=== PATIENT | female | born 1990 | race Caucasian/White ===

== ENCOUNTER 2025-03-19 08:48 | Outpatient (CLI) | payer OTHER, SELFPAY ==
--- NOTE | ~2025-03-19 | MMUS_ITS ---
EXAMINATION: MM diagnostic daniela BI w nathalia, US breast LT complete INDICATION: 35-year old female with prior history of left breast abscess now presents with greenish left nipple discharge which as subsided since the improvement on antibiotics in the last 1 week; presents for imaging evaluation for left breast abscess. COMPARISON: Baseline TECHNIQUE: Digital breast tomosynthesis True lateral, CC and MLO views of BILATERAL breast were obtained with computer-aided detection to assist in interpretation of the study. MAMMOGRAM FINDINGS: The breasts are extremely dense, which lowers the sensitivity of mammography. A superficial asymmetry persists in the medial subareolar location in the left breast. There is no other evidence of suspicious mass, calcification, or architectural distortion to suggest malignancy in either breast.. LEFT BREAST ULTRASOUND FINDINGS: Targeted evaluation of the area of concern was completed. At 9:00 superficial subareolar location in the left breast, corresponding to the area of mammographic finding, there is a 2.98 x 1.34 cm complex fluid collection with no internal vascularity/intramural nodule. IMPRESSION: LEFT breast abscess at 9:00, subareolar location. No evidence of malignancy within the right breast. RECOMMENDATION: Clinical management with follow-up to complete resolution. BI-RADS 2, BENIGN Reviewed, dictated and finalized at location B. IMPRESSION: LEFT breast abscess at 9:00, subareolar location. No evidence of malignancy within the right breast. RECOMMENDATION: Clinical management with follow-up to complete resolution. BI-RADS 2, BENIGN
--- OUTSIDE RECORDS SUMMARY | 2025-03-19 09:02 | XMS_ITS | Patient Health Record ---
Author Organization [facility] Address [facility] [id number] Care Team Providers Care Director Imaging Name Role Phone Claudia Turner Unavailable [phone] Reason For Referral No Information Social History Social History Additional Details Category Social Info Options Details Migrated Social History Migrated Social History Comments : Positive, Notes: lives with dad, mom killed in car accident a few years ago Plan Of Treatment No Information
--- OUTSIDE RECORDS SUMMARY | 2025-03-19 09:02 | XMS_ITS | Data Portability ---
Author Organization [facility], Telehealth (patients home) Address [address] [place] [address] Assessment Encounter Date Assessment Date Assessment LastModified by Organization Details LastModified Time 04/20/2024 04/20/2024 Annual gynecological exam performed. Patient will come back in a year unless there are new symptoms. [email or web address] Not available 04/20/2024 09:49:34 07/20/2024 07/20/2024 Bhavya really likes the NuvaRing. Cycles last 4 days and are not as heavy. cramping not as many days. Feeling more balanced mentally. still get really nauseated with her cycle. would like to continue nuvaring Not available 07/20/2024 10:20:24 03/09/2025 03/09/2025 Labs and Imaging Laboratory tests ordered: Thyroid function tests to be completed within the next few days Prolactin level to be completed within the next few days (after breast exam to avoid false elevation) Visit Summary Bhavya Sanders presented with concerns about left breast tenderness, enlargement, and redness that started a day or two ago. She reports similar episodes over the past couple of years with previous instances of greenish-yellow discharge. Her most recent episode occurred a few months ago before summer 2024. She describes her current symptoms as a feeling before it discharges with her breast feeling hard and sore and her nipple throbbing. She reports consuming approximately 18 ounces of coffee daily and recently completed her menstrual cycle a couple of days ago. Physical examination confirmed that her left breast appears larger than the right. Laboratory tests were ordered including thyroid function and prolactin level to be completed in the next few days (not immediately following the breast exam to avoid false elevation of prolactin). She was advised to limit caffeine intake to help with breast tenderness and was recommended to try evening primrose supplements. She was instructed not to stimulate her breasts to avoid causing more discharge. A follow-up wellness exam is already scheduled for April 26, 2025. If test results are concerning, referral to a breast specialist will be considered. Not available 03/09/2025 23:46:51 03/17/2025 03/17/2025 Labs and Imaging Blood work (March 12, 2025) Patient mentions having blood work done, results were normal. [email or web address] Not available 03/17/2025 23:27:16 Plan of Treatment Reminders Order Date Submit Date Provider Last Modified By Organization Details Last Modified Time Details Appointments ANNUAL LAMBSKIN TRIMMER 2024 09:00A Jayleen Chapa Not available Not available Not available Lab TSH + free T4, serum 2024 025 [facility], [address], [place], [address], 03/13/2025 10:07:47 prolactin , serum 2024 025 [facility], [address], [place], [address], 03/13/2025 10:07:47 beta-HCG, qualitati ve, serum or plasma 2024 025 [facility], [address], [place], [address], 03/13/2025 10:07:48 pap, IG + HPV mRNA E6/E7 + reflex HPV (16+18+45 ) 2023 024 [facility], [address], [place], [address], 05/06/2024 21:14:16 Referral None recorded. Procedures None recorded. Surgeries None recorded. Imaging US, breast, [facility]atera l [facility]24 [facility]25 [facility], [address], [place], [address], 03/17/2025 19:15:38 Medication Orders NuvaRing 0.12 mg-0.015 mg/24 hr vaginal 2024 025 [facility], [address] [place] [address], [id number], 03/05/2025 18:18:22 NuvaRing 0.12 mg-0.015 mg/24 hr vaginal 2023 024 [facility], [address] [place] [address], [id number], 04/20/2024 11:26:13 Patient TargetsNo targets recorded. Patient Instructions Encounter Date Encounter Id Patient Instructions Last Modified By Organization Details Last Modified Time 04/20/2024 [id number] Learning About Control: The Vaginal Ring [email or web address] Not available 04/20/2024 11:17:06 The Vaginal Ring for Control: Care Instructions [email or web address] Not available 04/20/2024 11:17:06 discussed PHQ9 score and offered psychiatric evaluation for depression care [email or web address] Not available 04/20/2024 11:24:18 Reason for Referral None Reported. Results Created Date Observation Date Name Description Value Unit Range Abnormal Flag Note LastModifiedBy Organization Detail LastModifiedTime 04/20/2004/22/2024 IGP, APTIM A HPV, RFX 16/18 ,45 HPV aptima Positi ve negati ve abnormal This nucle ic acid ampli ficat ion test detec ts fourt een high- risk HPV types (16,1 8,31, 33,35 ,39,4 5,51, 52,56 ,58,5 9,66, 68) witho ut diffe renti ation . Not Available [facility] ([facility]) [address], [place], [address], 04/30/2024 17:07:35 04/20/2004/30/2024 IGP, APTIM A HPV, RFX 16/18 ,45 diagnosis: Commen t abnormal EPITH ELIAL CELL ABNOR MALIT Y. LOW GRADE SQUAM OUS INTRA EPITH ELIAL LESIO N (LSIL ). Not Available [facility] ([facility]) [address] [facility] [address], [place], [address], 04/30/2024 17:07:35 04/20/20 24 04/30/2024 IGP, APTIM A HPV, RFX 16/18 ,45 specimen adequacy: Jose ruiz Satis facto ry for evalu ation . Endoc ervic al and/o r squam ous metap lasti c cells (endo cervi lashawn compo nent) are prese nt. Not Available [facility] ([facility]) [address] [place], [address], 04/30/2024 17:07:35 04/20/20 24 04/30/2024 IGP, APTIM A HPV, RFX 16/18 ,45 clinician provided ICD10: Jose ruiz Z01.4 19 Not Available [facility] ([facility]) [address] [place], [address], 04/30/2024 17:07:35 04/20/20 24 04/30/2024 IGP, APTIM A HPV, RFX 16/18 ,45 performed by: Jose Ramos , Cytot echno logis t (ASCP ) Not Available [facility] ([facility]) [address] [place], [address], 04/30/2024 17:07:35 04/20/20 24 04/30/2024 IGP, APTIM A HPV, RFX 16/18 ,45 electronical ly signed by: Jose Fontenot MD, Patho logis t Not Available [facility] ([facility]) [address] [place], [address], 04/30/2024 17:07:35 04/20/20 24 04/30/2024 IGP, APTIM A HPV, RFX 16/18 ,45 . . Not Available [facility] ([facility]) [address] [facility] [place], [address], 04/30/2024 17:07:35 04/20/20 24 04/30/2024 IGP, APTIM A HPV, RFX 16/18 ,45 pathologist provided ICD10: Jose ruiz R87.6 12 Not Available [facility] ([facility]) [address] [facility] [address], [place], [address], 04/30/2024 17:07:35 04/20/20 24 04/30/2024 IGP, APTIM A HPV, RFX 16/18 ,45 note: Jose ruiz The Pap smear is a scree arlene test desig ele to aid in the detec tion of juliette ligna nt and malig nant condi tions of the uteri ne cervi x. It is not a diagn ostic proce dure and shoul d not be used as the sole means of detec ting cervi lashawn cance r. Both false -posi tive and false -nega tive repor ts do occur . Not Available [facility] ([facility]) [address] [facility] [address], [place], [address], 04/30/2024 17:07:35 04/20/20 24 04/30/2024 IGP, APTIM A HPV, RFX 16/18 ,45 test methodology: Jose ruiz This liqui d based ThinP rep(R ) pap test was scree ele with the use of an image guide d systsemaj m. Not Available [facility] ([facility]) [address] [facility] [address], [place], [address], 04/30/2024 17:07:35 04/20/20 24 04/30/2024 IGP, APTIM A HPV, RFX 16/18 ,45 HPV genotype reflex Commdesmond ruiz Crite delores not met, HPV Genot ype not perfo rmed. Not Available [facility] ([facility]) [address] [facility] [address], [place], [address], 04/30/2024 17:07:35 04/20/20 24 05/04/2024 HPV GENOT YPES 16/18 ,45 HPV genotype 16 Negati ve negati ve Not Available [facility] ([facility]) [address] [place], [address], 05/05/2024 00:05:56 04/20/20 24 05/04/2024 HPV GENOT YPES 16/18 ,45 HPV genotype 18,45 Negati ve negati ve Not Available [facility] ([facility]) [address] [place], [address], 05/05/2024 00:05:56 04/20/20 24 05/04/2024 SONAM EN AUTHO RIZAT ION written authorizatio n Jose Baugh en Autho rizat ion Recei taty. Autho rizat ion recei taty from JOSETTE Casas GERALDINE 05-04 Logge d by Cory byers Not Available [facility] ([facility]) [address] [place], [address], 05/05/2024 00:05:57 03/12/2003/13/2025 TSH+F REE T4 TSH 1.360 uIU/m L 0.450- 4.500 normal Not Available [facility] ([facility]) [address] [place], [address], 03/13/2025 10:07:47 03/12/2003/13/2025 TSH+F REE T4 T4,free(dire ct) 1.40 NG/dL 0.82-1 .77 normal Not Available [facility] ([facility]) [address] [place], [address], 03/13/2025 10:07:47 03/12/2003/13/2025 PROLA CTIN prolactin 10.0 NG/mL 4.8-33 .4 normal Not Available [facility] ([facility]) [address] [place], [address], 03/13/2025 10:07:47 03/12/20 25 03/13/2025 HCG QL W/REF RANDY TO HCG QN HCG,beta subunit,qual Negati ve mIU/m L negati ve <6 Not Available [facility] ([facility]) [address] [facility] [address], [place], [address], 03/13/2025 10:07:48 Result Notes None recorded. Problems Name Problem SNOMED Code Status Onset Date Resolution Date Notes Provider Name and Address Organization Details Recorded Time Increased 02687611 Active 2024 Denise Chapa CNM, [facility] [address], [place], [address], [facility] 14:24:44 Pain of breast 46045621 Active 2024 Denise Chapa CNM, [facility]- [address], [place], [address], [facility] 16:00:04 Pain of left breast 1949049721 Active 2024 Cristal Armenta [facility] 5 10:49:49 Inflammator y disorder of breast 819078849 Active 2024 Denise Chapa CNM, [facility]- [address], [place], [address], [facility] 5 10:31:20 Problem Notes None recorded. Procedures Surgical History Date Name Laterality Status Provider Name and Address Organization Details Recorded Time 4 Date of Last Pap Smear completed Cristal Armenta [facility] 03/09/2025 15:35:38 9 extraction of wisdom tooth completed Cristal Armenta [facility] 03/09/2025 15:32:41 Imaging Results None recorded. Procedure Notes None recorded. Medical Equipment None Reported. Allergies No known drug allergies Medications Name Sig Start Date Stop Date Status Note LastModified by Organization Details LastModified Time dicloxacilli n 500 mg capsule TAKE ONE CAPSULE BY MOUTH EVERY 6 HOURS active Not Available Not Available No t Available benzonatate 100 mg capsule TAKE ONE CAPSULE BY MOUTH THREE TIMES DAILY NEEDED FOR cough 03/09 completed Not Available Not Available Not Available etonogestrel 0.12 mg-ethinyl estradiol 0.015 mg/24 hr vaginal ring Insert 1 vaginal ring every month by vaginal route. active Not Available Not Available No t Available Vitals Date Recorded Body height Body mass index (BMI) Body weight Heart rate Systolic And Diastolic Provider Name and Address Organization Details Last Updated DateTime 07/20/2024 154.94 cm 26.5 kg/m2 16603.93 g 79 /min 135/85 mm[Hg] Myrna Zapien [facility] 07/20/2024 09:52:12 Date Recorded Body height Body mass index (BMI) Body weight Heart rate Systolic And Diastolic Provider Name and Address Organization Details Last Updated DateTime 03/09/2025 154.94 cm 27.8 kg/m2 64627.08 g 80 /min 143/88 mm[Hg] Cristal Armenta [facility] 15:30:35 Date Recorded Body height Body mass index (BMI) Body weight Heart rate Systolic And Diastolic Provider Name and Address Organization Details Last Updated DateTime 03/17/2025 154.94 cm 27.8 kg/m2 55831.08 g 78 /min 123/81 mm[Hg] Cristal Armenta [facility] 09:04:55 Date Recorded Body height Body mass index (BMI) Body weight Heart rate Systolic And Diastolic Provider Name and Address Organization Details Last Updated DateTime 04/20/2024 154.94 cm 27.6 kg/m2 44944.49 g 73 /min 129/85 mm[Hg] Myrna Zapien [facility] 04/20/2024 09:51:23 Social History Question Answer Notes LastModified by Organizat ion Details LastModified Time Tobacco Smoking Status [facility] 09:57:04 What Is Your Level Of Caffeine Consumption? Moderate [email or web address] Information not available 04/20/2024 How Many Times Per Week Do You Exercise? 3-4 Times Per Week [email or web address] Information not available 04/20/2024 When Did You Quit Smoking? 11-15yearssin [email or web address] soto [email or web address] Information not available 04/20/2024 Are There Any Guns Present In Your Home? No [email or web address] Information not available 04/20/2024 Do You Feel Safe In Your Home? Yes [email or web address] Information not available 04/20/2024 How Many Years Have You Smoked Tobacco? 2 [email or web address] Information not available 04/20/2024 Do You Want To Talk About Contraception Or Prevention During Your Visit Today? Yes [email or web address] Information no t available 04/20/2024 Do You Have Any Future Plans To Get ? No, I Don't Want To Become Information not available 04/20/2024 Sex: Unknown Functional Status Question Answer Note LastModified by Organizat ion Details LastModified Time Do you use any illicit or recreational drugs? No [email or web address] Information not available 04/20/2024 Do you or have you ever used any other forms of tobacco or nicotine? Yes [email or web address] Information not available 04/20/2024 What is your level of alcohol consumption? None states used to drink daily, but does not drink at all now [email or web address] Information not available 04/20/2024 Do you or have you ever used e-cigarettes or vape? Former user of electronic cigarettes [email or web address] Information not available 04/20/2024 What is your exercise level? Moderate [email or web address] Information not available 04/20/2024 Mental Status Question Answer Note LastModified by Organization D etails LastModified Time Do you feel stressed (tense, restless, nervous, or anxious, or unable to sleep at night)? [id number] Information not available 04/20/2024 Family History Relationship Description Onset Age of this Age Resolved Age Notes LastModified by Organization Details LastModified Time Maternal Grandmother Malignant neoplasm of breast [email or web address] Not available 2023 09:54:06 Medical History Condition Response History of STI Y Other Y History of abnormal pap Y High Cholesterol Y Gynecological History Statement/Question Response Abnormal Pap Y Date of LMP 02/28/2025 STIs/STDs Y Menses Monthly Y HPV Vaccine N Date of Last Pap Smear 04/20/2024 Current Control Method Vaginal Rin g LMP Approximate Obstetrics History GPAL:G 0 P 0 0 0 0 Type Value Living 0 Total 0 Past Encounters Encounter ID Performer Location Encounter Start Date Encounter Closed Date Diagnosis/Indication Diagnosis SNOMED-CT Code Diagnosis ICD10 Code Diagnosis IMO Codes Diagnosis Note [id number] Denise Chapa CNM, [facility] Main Office [address] [place] [address] 04/20/2024 09:40:16 04/21/2024 11:07:31 Gynecologic examination 68332216 Z01.419 encouraged exerciseen couraged monthly BSEEncoura ged yearly annual examsdecli china STD testingenc ouraged getting cholestero l panel and tsh checked through PCP. HAs appt scheduled for new PCP Contracept ion care management 664704221 Z30.9 discussed control options with Bhavya. Bhavya is interested in nuvaring. Sample Nuvaring shown. discussed when to place. how to place nuvaring. how to remove. HAndout also sent to her email.star t nuvaring for control on saturday follow cycle. not effective for the first month.disc ussed may have irregualr bleeding up to the first 3 months as her body is adjusting to the hormone.Bi h control consent signed.fol low up in office in 3 months [id number] Denise Chapa CNM, [facility] Main Office [address] [place] [address] 07/20/2024 09:46:21 07/21/2024 10:25:08 Contraception care management 446897932 Z30.9 nuvaring sent to [facility] up in office in April for [facility] [id number] Denise Chapa CNM, [facility] Main Office [address] [facility] [place] [address] 03/09/2025 15:20:24 03/10/2025 07:06:29 Pain of left breast 7187803657 N64.4 [id number] I discussed with Bhavya that her breast symptoms may be related to fibrocysti c changes that can be exacerbate d by caffeine intake. I explained that breast tissue tends to be more lumpy bumpy and fibrocysti c mid-cycle through the menstrual period, and that caffeine can contribute to these symptoms. Upon examinatio zeeshan, I confirmed that her left breast appears larger than the right with some redness. Ordered thyroid function tests and prolactin level to be completed within the next few days (not immediatel y following breast exam to avoid false elevation of prolactin) Recommende d limiting caffeine intake to help reduce breast tenderness Suggested evening primrose supplement s (Pure Encapsulat ions brand recommende d at $15.70 for 100 capsules or $33 for 250 capsules, or over-the-c ounter options from [employer]) Advised against stimulatin g the breasts to avoid causing more discharge Will review test results when available If results are concerning , will refer to a breast specialist Follow-up at scheduled wellness exam on April 26, 2025 [id number] Denise Chapa CNM, [facility]- Main Office [address] [place] [address] 03/17/2025 09:00:15 03/18/2025 08:02:03 Inflammatory disorder of breast 467598810 N61.0 [id number] Assessment and Plan 1. Recurrent Breast Infection/ Inflammati on Discussion : I discussed with the patient that her recurrent breast infections over the past two and a half years (approxima tely five episodes) are concerning and warrant further evaluation by a breast specialist . While the current antibiotic therapy with dicloxacil elias appears to be providing relief, the underlying cause of these recurrent episodes needs to be determined . I explained that dicloxacil elias is the gold standard first-line treatment for this type of infection, but we need to understand why these infections keep recurring. Plan: Continue dicloxacil elias for the remaining 6 days of the 10-day course Ordered mammogram/ breast ultrasound to evaluate the affected area Referral [facility] breast [facility] at [facility] Health Concerns Section Related Observation LastModified by Organization Detai ls LastModified Time None Recorded Concern Status LastModified by Organization Details LastModified Time None Recorded Advance Directives Directive None Recorded Payers Insurance Date Sequence Insurance Name Policy Number Policy Snell Covered Member ID Snell Member ID Guarantor Name 03/09/2025 1 [facility] [id number] Bhavya Sanders [id number] Bhavya Sanders 03/16/2025 1 [facility] [id number] Bhavya Sanders [id number] Bhavya Sanders Notes Date Note Type Note Provider Name and Address Organization Details Recorded Time 4 text/html Annual GYNReported by PatientHistoryFor history, patient reportsno gynecologic complaints.Genitourina ry symptomsFor menstrual cycle, patient reportsnormal mensesandage at menarche (15). For vulva, patient reportsno genital lesion. For vagina, patient reportsnormal vaginal discharge.Breast symptomsFor breast, patient reportsno breast pain,no breast lump, andno nipple discharge.Contraceptio nFor current contraception, patient reportsmonogamous relationship,withdrawa l method, andwants to discuss contraceptive options.Endocrine symptomsFor sexual complaints, patient reportsno sexual complaints,no pain during intercourse, andnormal libido. For menopausal symptoms, patient reportsno menopausal symptomsandnormal vaginal lubrication.Psychologi lashawn symptomsFor psychological symptoms, patient reportsdepression.Prev entative measuresFor preventive measures, patient reportsencourage self breast examination,encourage regular exercise, andfollowed with q3 year pap smear and high risk hpv typing. Denise Chapa CNM, [facility] [address], [place], [address], [facility] 04/20/2024 11:24:23 5 text/html Bhavya really likes the NuvaRing. Cycles last 4 days and are not as heavy. cramping not as many days. Feeling more balanced mentally. still get really nauseated with her cycle. would like to continue nuvaring Denise Chapa CNM, [facility] [address], [place], [address], [facility] 07/20/2024 10:20:55 5 text/html History of present illness Bhavya Sanders presents with concerns about breast tenderness that started a day or two ago. She reports that her left breast feels bigger, tender, and has some redness. She describes the sensation as the feeling before it discharges, comparing it to previous episodes she has experienced over the past couple of years. She states that her nipple feels like it's throbbing and the breast feels hard and sore. She reports that during a previous episode a few months ago (before summer 2024), she experienced what she describes as an abscess with discharge that was green, yellow, padilla bloody, just nasty. She mentions that the first time this occurred, it felt like a pimple that she squeezed, resulting in discharge. The discharge has typically been greeny yellow in color. Bhavya reports that her menstrual cycle ended a couple of days ago. She describes her recent cycle as pretty crampy with more nausea than usual before her period started. She states, I always, like, puke before I get my period. I just, like, get that nauseous, but, like, I felt more nauseous this time around. She currently consumes caffeine daily, reporting that she has cut back a lot and now drinks one cup (approximately 18 ounces) of coffee per day. Bhavya expresses anxiety about her breast symptoms, stating she has been too scared to perform regular breast self-examinations, explaining, I get into my head thinking about the nipple thing, and then I'm just, like, scared to feel around. And then if I feel something, I'm like, oh my god. Like, is that normal? Is it not normal? She has an upcoming wellness exam scheduled for April 26, 2025, which includes follow-up for a previous abnormal Pap smear. Past Medical History Illness, Injuries, Operations, and Treatment: Not provided Previous Psychiatric or Mental Health Treatment: Not provided Previous Psychiatric or Mental Health Hospitalization: Not provided Medication History Denise Chapa CNM, [facility]- [address], [place], [address], [facility] 03/09/2025 23:51:34 5 text/html Bhavya Sanders is a 35-year-old female presenting for follow-up regarding breast issues. She reports ongoing redness in her breasts. She describes that yesterday her nipple appeared to blend in with the surrounding tissue, which she states is unusual for her. She reports that the area where discharge normally comes from is now hard, though she is not currently experiencing discharge. She believes the medication she was prescribed has prevented discharge and reduced pain. Bhavya reports a history of recurrent breast infections with discharge over the past two and a half years, occurring approximately five times. She describes the discharge as typically greenish-yellow and purulent. Her most recent episode was particularly severe with a significant amount of discharge that she described as an abscess with bloody discharge, which she attributed to trauma in the area. She states she has never had these issues evaluated previously. She was started on dicloxacillin four days ago (Saturday) and reports experiencing relief by the next morning. She has six days remaining of the ten-day course. She notes that while there has been improvement, the area remains tender to touch. Denise Chapa CNM, [facility] [address], [place], [address], [facility] 03/17/2025 23:29:17 OBGyn Episode No OBEpisode recorded.
== END 2025-03-19 08:49 | disposition home or self-care (01) ==
LOC: CHSIMG 08:53
PROVIDERS: PCP Advanced Practice Midwife; Visit Provider Advanced Practice Midwife
DX: N64.4 Mastodynia (principal)
CPT/HCPCS: 76641; 77062; 77066; G0279

== ENCOUNTER 2025-03-23 16:16 | Outpatient (NON) | payer OTHER, SELFPAY ==
--- OUTSIDE RECORDS SUMMARY | 2025-03-23 17:53 | XMS_ITS | Data Portability ---
Author Organization [facility], Telehealth (patients home) Address [address] [place] [address] Assessment Encounter Date Assessment Date Assessment LastModified by Organization Details LastModified Time 04/20/2024 04/20/2024 Annual gynecological exam performed. Patient will come back in a year unless there are new symptoms. [email or web address] Not available 04/20/2024 09:49:34 07/20/2024 07/20/2024 Bhavya [...] having blood work done, results were normal. 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 2024 09:00A Jayleen Chapa Not available Not available Not available Lab TSH + free T4, serum 2024 025 [place] [facility], [address], [place], [address], 03/13/2025 10:07:47 prolactin , serum 2024 025 [place] [facility], [address], [place], [address], 03/13/2025 10:07:47 beta-HCG, qualitati ve, serum or plasma 2024 025 [place] [facility], [address], [place], [address], 03/13/2025 10:07:48 pap, IG + HPV mRNA E6/E7 + reflex HPV (16+18+45 ) 2023 024 [email or web address] [facility], [address], [place], [address], 05/06/2024 21:14:16 Referral None recorded. Procedures None recorded. Surgeries None recorded. Imaging US, breast, unilatera l 2024 025 [email or web address] [facility], [address], [place], [address], 03/23/2025 12:31:50 Medication Orders NuvaRing 0.12 mg-0.015 mg/24 hr vaginal 2024 025 [facility], [address] [place] [address], [id number], 03/05/2025 18:18:22 NuvaRing 0.12 mg-0.015 mg/24 hr vaginal 2023 024 [facility], [address] [place] [address], [id number], 04/20/2024 11:26:13 Patient TargetsNo targets recorded. Patient Instructions Encounter Date Encounter Id Patient Instructions Last Modified By Organization Details Last Modified Time 04/20/2024 [id number] Learning About Control: The Vaginal Ring Not available 04/20/2024 11:17:06 The Vaginal Ring for Control: Care Instructions [email or web address] Not available 04/20/2024 11:17:06 discussed PHQ9 score and offered psychiatric evaluation for depression care [email or web address] Not available 04/20/2024 11:24:18 Reason for Referral [...] diffe renti ation . 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 LOW GRADE SQUAM OUS INTRA EPITH ELIAL LESIO N (LSIL ). Not Available [facility] ([facility]) [address] [facility], [place], [address], 04/30/2024 17:07:35 04/20/20 24 04/30/2024 IGP, APTIM A HPV, RFX 16/18 ,45 specimen adequacy: Jose ruiz Satis facto ry for evalu ation . Endoc ervic al and/o r squam ous metap lasti c cells (endo cervi lashawn compo nent) are prese nt. Not Available [facility] ([facility]) [address] [place], [address], 04/30/2024 17:07:35 04/20/20 24 04/30/2024 IGP, APTIM A HPV, RFX 16/18 ,45 clinician provided ICD10: Jose ruiz Z01.4 19 Not Available [facility] ([facility]) [address] [place], [address], 04/30/2024 17:07:35 04/20/20 24 04/30/2024 IGP, APTIM A HPV, RFX 16/18 ,45 performed by: Jose Ramos , Cytot echno logis t (ASCP ) Not Available [facility] ([facility]) [address] [place], [address], 04/30/2024 17:07:35 04/20/20 24 04/30/2024 IGP, APTIM A HPV, RFX 16/18 ,45 electronical ly signed by: Jose Fontenot MD, Patho logis t Not Available [facility] ([facility]) [address] [place], [address], 04/30/2024 17:07:35 04/20/20 24 04/30/2024 IGP, APTIM A HPV, RFX 16/18 ,45 . . Not Available [facility] ([facility]) [address] [facility] [place], [address], 04/30/2024 17:07:35 04/20/20 24 04/30/2024 IGP, APTIM A HPV, RFX 16/18 ,45 pathologist provided ICD10: Jose ruiz R87.6 12 Not Available [facility] ([facility]) [address] [facility], [place], [address], 04/30/2024 17:07:35 04/20/20 24 04/30/2024 IGP, APTIM [...] ts do occur . Not Available [facility] ([facility]) [address] [facility], [place], [address], 04/30/2024 17:07:35 04/20/20 24 04/30/2024 IGP, APTIM A HPV, RFX 16/18 ,45 test methodology: Jose ruiz This liqui d based ThinP rep(R ) pap test was scree ele with the use of an image guide d systsemaj m. Not Available [facility] ([facility]) [address] [facility], [place], [address], 04/30/2024 17:07:35 04/20/20 24 04/30/2024 IGP, APTIM A HPV, RFX 16/18 ,45 HPV genotype reflex Jose ruiz Crite delores not met, HPV Genot ype not perfo rmed. Not Available [facility] ([facility]) [address] [facility], [place], [address], 04/30/2024 17:07:35 04/20/20 24 05/04/2024 HPV GENOT YPES 16/18 ,45 HPV genotype 16 Negati ve negati ve Not Available [facility] ([facility]) [address] [place], [address], 05/05/2024 00:05:56 04/20/20 24 05/04/2024 HPV GENOT YPES 16/18 ,45 HPV genotype 18,45 Negati ve negati ve Not Available [facility] ([facility]) [address] [place], [address], 05/05/2024 00:05:56 04/20/20 24 05/04/2024 SONAM EN AUTHO RIZAT ION written authorizatio n Jose Baugh en Autho rizat ion Recei taty. Autho rizat ion recei taty from JOSETTE CHAPA 05-04 Logge d by Cory byers Not Available [facility] ([facility]) [address] [place], [address], 05/05/2024 00:05:57 03/12/2003/13/2025 TSH+F REE T4 TSH 1.360 uIU/m L 0.450- 4.500 normal Not Available [facility] ([facility]) [address] [place], [address], 03/13/2025 10:07:47 03/12/2003/13/2025 TSH+F REE T4 T4,free(dire ct) 1.40 NG/dL 0.82-1 .77 normal Not Available [facility] ([facility]) [address] [place], [address], 03/13/2025 10:07:47 03/12/2003/13/2025 PROLA CTIN prolactin 10.0 NG/mL 4.8-33 .4 normal Not Available [facility] ([facility]) [address] [place], [address], 03/13/2025 10:07:47 03/12/20 25 03/13/2025 HCG QL W/REF RANDY TO HCG QN HCG,beta subunit,qual Negati ve mIU/m L negati ve <6 Not Available [facility] ([facility]) [address] [facility], [place], [address], 03/13/2025 10:07:48 03/22/2003/19/2025 MAMMO , diagn ostic , digit al, bilat eral No observ ation record ed. [email or web address] [facility] [address] [place], [address], 03/23/2025 12:29:47 Result Notes None recorded. Problems Name Problem SNOMED Code Status Onset Date Resolution Date Notes Provider Name and Address Organization Details Recorded Time Increased 25722018 Active 2024 [facility], [facility] [address], [place], [address], [facility] [place] 14:24:44 Pain of breast 69517347 Active 2024 Den[facility] Chapa CNM, [facility] [address], [place], [address], [facility] [place] 16:00:04 Pain of left breast 4376487253 Active 2024 Cristal Armenta [facility], [facility] 5 10:49:49 Inflammator y disorder of breast 220174927 Active 2024 Den[facility] Chap[facility] CNM, [facility] [address], [place], [address], [facility] [place] 10:31:20 Problem Notes None recorded. Procedures Surgical History Date Name Laterality Status Provider Name and Address Organization Details Recorded Time Date of Last Pap Smear completed Cristal Armenta [facility] 03/09/2025 15:35:38 9 extraction of wisdom tooth completed Cristal [facility] 03/09/2025 15:32:41 Imaging Results None recorded. Procedure [...] Updated DateTime 07/20/2024 154.94 cm 26.5 kg/m2 61437.93 g 79 /min 135/85 mm[Hg] Myrna Zapien [facility] 07/20/2024 09:52:12 Date Recorded Body height Body mass index (BMI) Body weight Heart rate Systolic And Diastolic Provider Name and Address Organization Details Last Updated DateTime 03/09/2025 154.94 cm 27.8 kg/m2 61223.08 g 80 /min 143/88 mm[Hg] Cristal Armenta [facility] 15:30:35 Date Recorded Body height Body mass index (BMI) Body weight Heart rate Systolic And Diastolic Provider Name and Address Organization Details Last Updated DateTime 03/17/2025 154.94 cm 27.8 kg/m2 69586.08 g 78 /min 123/81 mm[Hg] Cristal Armenta [facility] 09:04:55 Date Recorded Body height Body mass index (BMI) Body weight Heart rate Systolic And Diastolic Provider Name and Address Organization Details Last Updated DateTime 04/20/2024 154.94 cm 27.6 kg/m2 31611.49 g 73 /min 129/85 mm[Hg] Myrna Zapien [facility] 04/20/2024 09:51:23 Social History Question Answer Notes LastModified by Organizat ion Details LastModified Time Tobacco Smoking Status Former Smoker Myrna Zapien [facility], [facility] 04/20/2024 09:57:04 What Is Your Level Of Caffeine Consumption? Moderate [email or web address] Information not available 04/20/2024 How Many Times Per Week Do You Exercise? 3-4 Times Per Week [email or web address] Information not available 04/20/2024 When Did You Quit Smoking? 11-15yearssin [email or web address] te Information not available 04/20/2024 Are There Any Guns Present In Your Home? No Information not available 04/20/2024 Do You Feel Safe In Your Home? Yes [email or web address] Information not available 04/20/2024 How Many Years Have You Smoked Tobacco? 2 Information not available 04/20/2024 Do You Want To Talk About Contraception Or Prevention During Your Visit Today? Yes Information no t available 04/20/2024 Do You Have Any Future Plans To Get ? No, I Don't Want To Become [email or web address] Information not available 04/20/2024 Sex: Unknown Functional Status Question Answer Note LastModified by [employer] Details LastModified Time Do you use any illicit or recreational drugs? No [email or web address] Information not available 04/20/2024 Do you or have you ever used any other forms of tobacco or nicotine? Yes [email or web address] Information not available 04/20/2024 What is your level of alcohol consumption? None states used to drink daily, but does not drink at all now [email or web address] Information not available 04/20/2024 Do you or have you ever used e-cigarettes or vape? Former user of electronic cigarettes [email or web address] Information not available 04/20/2024 What is your exercise level? Moderate Information not available 04/20/2024 Mental Status Question Answer Note LastModified by Organization D etails LastModified Time Do you feel stressed (tense, restless, nervous, or anxious, or unable to sleep at night)? [id number] [email or web address] Information not available 04/20/2024 Family History Relationship Description Onset Age of this Age Resolved Age Notes LastModified by Organization Details LastModified Time Maternal Grandmother Malignant neoplasm of breast [email or web address] Not available 2023 09:54:06 Medical History Condition [...] Codes Diagnosis Note [id number] Denise Chapa CNM, [facility] Main Office [address] [place] [address] 04/20/2024 09:40:16 04/21/2024 11:07:31 Gynecologic examination 84117267 Z01.419 encouraged exerciseen couraged monthly BSEEncoura ged yearly annual examsdecli china STD testingenc ouraged getting cholestero l panel and tsh checked through PCP. HAs appt scheduled for new PCP Contracept ion care management [id number] Z30.9 discussed control options with Bhavya. Bhavya [...] her body is adjusting to the hormone.Bi [facility] control consent signed.fol low up in office in 3 months [id number] Denise Chapa CNM, [facility] Main Office [address] [place] [address] 07/20/2024 09:46:21 07/21/2024 10:25:08 Contraception care management [id number] Z30.9 nuvaring sent to [facility] er up in office in April for wwe [id number] Denise Chapa CNM, [facility] Main Office [address] [facility] [place] [address] 03/09/2025 15:20:24 03/10/2025 07:06:29 Pain of left breast [id number] N64.4 [id number] I discussed with Bhavya that her breast symptoms may be related to fibrocysti c changes that can be exacerbate d by caffeine intake. I explained that breast tissue tends to be more lumpy bumpy and fibrocysti c mid-cycle through the menstrual period, and that caffeine can contribute to these symptoms. Upon examinajonathano zeeshan, I confirmed that her left breast [...] 250 capsules, or over-the-c ounter options from [employer]) Advised against stimulatin g the breasts to avoid causing more discharge Will review test results when available If results are concerning , will refer to a breast specialist Follow-up at scheduled wellness exam on April 26, 2025 [id number] Denise Chapa CNM, [facility]- Main Office [address] [place] [address] 03/17/2025 09:00:15 03/18/2025 08:02:03 Inflammatory disorder of breast 269904382 N61.0 [id number] Assessment and Plan 1. Recurrent Breast Infection/ [...] affected area Referral to breast specialist at [facility] Health Concerns Section Related Observation LastModified by Organization Detai ls LastModified Time None Recorded Concern Status LastModified by Organization Details LastModified Time None Recorded Advance Directives Directive None Recorded Payers Insurance Date Sequence Insurance Name Policy Number Policy Snell Covered Member ID Snell Member ID Guarantor Name 03/09/2025 1 [facility] [id number] Bhavya Sanders [id number] Bhavya Sanders 03/16/2025 1 [facility] [id number] Bhavya Sanders [id number] Bhavya Sanders Notes Date Note Type Note [...] high risk hpv typing. Denise Chapa CNM, [facility]- [address], [place], [address], [facility] [place] 04/20/2024 11:24:23 5 text/html Bhavya really likes the NuvaRing. Cycles last 4 days and are not as heavy. cramping not as many days. Feeling more balanced mentally. still get really nauseated with her cycle. would like to continue nuvaring [facility], [facility] [address], [place], [address], [facility] [place] 07/20/2024 10:20:55 5 text/html History of present [...] Not provided Medication History Denise Chapa CNM, [facility]- [address], [place], [address], [facility] - [facility] 03/09/2025 23:51:34 5 text/html Bhavya Sanders is [...] to touch. Denise Chapa CNM, [facility] [address], [place], [address], [facility] [place] 03/17/2025 23:29:17 OBGyn Episode No OBEpisode recorded.
--- OUTSIDE RECORDS SUMMARY | 2025-03-23 17:53 | XMS_ITS | Clinical Summary ---
Author Organization [facility] Address [address] [place] [address] Care Team Providers Care Plc Technician Name Role Phone None, Provider MD Primary Care Provider Unavaila ble Allergies No known active allergies Medications dextromethorphan -guaiFENesin ER (MUCINEX DM) 30-600 MG TABLET SR 12 HR 12 hr tablet Take 1 tablet by mouth every 12 (twelve) hours as needed. 28 tablet 03/25/2024 Active Family History Medical History Relation Comments No Known Problems Father No Known Problems Mother Relation Status Comments Father Alive Mother Social History Tobacco Use Types Packs/Day Years Used Date Smoking Tobacco: Former Cigarettes Passive Smoke Exposure: Never Smokeless Tobacco: Never Tobacco Cessation:Counseling Given: Not Answered Alcohol Use Standard Drinks/Week Comments Not Currently 0 (1 standard drink = 0.6 oz pur e alcohol) Comments No Sex and Gender Information Value Date Recorded Sex Assigned at Not on file Legal Sex Female 2:37 PM CDT Gender Identity Not on file Sexual Orientation Not on file Last Filed Vital Signs Vital Sign Reading Time Taken Comments Blood Pressure 148/95 03/25/2024 2:49 PM CDT Pulse 90 03/25/2024 2:49 PM CDT Temperature 36.6 C (97.9 F) 03/25/2024 2:49 PM CDT Respiratory Rate 16 03/25/2024 2:49 PM CDT Oxygen Saturation 100% 03/25/2024 2:49 PM CDT Inhaled Oxygen Concentration - - Weight 59 kg (130 lb) 03/25/2024 2:49 PM CDT Height 154.9 cm (5' 1) 03/25/2024 2:49 PM CDT Body Mass Index 24.56 03/25/2024 2:49 PM CDT Plan of Treatment Health Maintenance Due Date Last Done Comments Cervical Cancer Screening Pa p Smear (Age 30 to 64) Every 3 Years 1992 Annual Physical 01/07/1995 Hepatitis C 01/07/2010 DTaP, Tdap and Td Vaccines ( 1 - Tdap) 01/07/2011 Hepatitis B Vaccines (1 of 3 - 19+ 3-dose series) 01/07/2011 HPV Vaccines (1 - 3-dose SCD M series) 01/07/2019 Cervical Cancer Screening Pa p with HPV Testing (Age 30 to 64) Every 5 Years 01/07/2022 Cervical Cancer Screening with HPV 01/07/2022 PHQ-2 (Physician [place]) 05/27/2024 COVID-19 Vaccine (1 - 2024-2 6 season) 2025 Influenza Adult (#1) 2025 Hepatitis A Vaccines Aged Out No long er eligible based on patient's age to complete this topic Meningococcal B Vaccine Aged Out No l onger eligible based on patient's age to complete this topic Meningococcal Vaccine Aged Out No gadiel pio eligible based on patient's age to complete this topic Pneumococcal Vaccine: Pediat rics (0 to 5 Years) and At-Risk Patients (6 to 49 Years) Aged Out No longer eligible b ased on patient's age to complete this topic RSV Immunizations Under 20 Months Aged Out No longer eligible based on patient's age to complete this topic Insurance Care Teams [employer] Technician Relationship Specialty Start Date End Date None, Provider, MD PCP - General UNKNOWN PHYSICIAN SPECIALTY 03/25/24
== END 2025-03-23 16:17 | disposition home or self-care (01) ==
LOC: ANHLAB 16:16
PROVIDERS: Visit Provider Surgery
DX: N61.1 Abscess of the breast and nipple (principal)
CPT/HCPCS: 87070; 87205

== ENCOUNTER 2025-04-19 15:14 | Outpatient (CLI) | payer OTHER, SELFPAY ==
--- NOTE | ~2025-04-19 | US_ITS ---
US breast LT limited 04/19/2025 15:29 Indication: Abscess right breast/nipple. Procedure: High-resolution Limited ultrasound of the right breast Comparison: 03/19/2025 Findings: Complex periareolar fluid collection near the nipple measuring 2.7 x 1.7 x 0.9 cm compared with 3 x 1.9 x 1.4 cm on prior examination. There is marginal vascularity. Mixed posterior attenuation. Impression: 1: Decreasing size of complex periareolar fluid collection of the right breast, compatible with abscess. BI-RADS CATEGORY 3-PROBABLY BENIGN FINDING RECOMMENDATION: Recommend follow-up ultrasound in 1-2 months following appropriate clinical management. Reviewed, dictated and finalized at location O. MARKETING EXECUTIVE Impression: 1: Decreasing size of complex periareolar fluid collection of the right breast, compatible with abscess. BI-RADS CATEGORY 3-PROBABLY BENIGN FINDING RECOMMENDATION: Recommend follow-up ultrasound in 1-2 months following appropri ate clinical management.
--- OUTSIDE RECORDS SUMMARY | 2025-04-19 17:51 | XMS_ITS | Clinical Summary ---
Author Organization [facility] Address [address] [place] [address] Care Team Providers Care Unit Leader Name Role Phone None, Provider MD Primary [...] Cancer Screening with HPV 01/07/2022 PHQ-2 (Physician [place]) 05/27/2024 COVID-19 Vaccine (1 - 2024-2 6 [...] patient's age [place] [id number] Care Teams Unit Leader Relationship Specialty Start Date End Date None, Provider, MD PCP - General UNKNOWN PHYSICIAN SPECIALTY 03/25/24
== END 2025-04-19 15:15 | disposition home or self-care (01) ==
PROVIDERS: Visit Provider Surgery
DX: N61.1 Abscess of the breast and nipple (principal)
CPT/HCPCS: 76642

== ENCOUNTER 2025-04-21 01:40 | Day surgery (SDC) | payer OTHER, SELFPAY ==
[2025-04-20 09:19] VITALS: BMI 25.8
--- NOTE | 2025-04-20 09:41 | PC.NURSE ---
[facility] has started construction of its new state of the art ER which will open Spring 2026. With this, we anticipate parking may be a challenge for some our surgical patients and families. Parking spaces are limited but are available for all Surgical, obstetrics, and ER patients sharing this lot. If you arrive and find you are having a hard time finding a parking space, please note that we understand the challenges, please drive around the hospital and park near Hospital Entrance 1. When you enter this entrance, you can ask a volunteer to direct or take you back to the surgical waiting area to check in. We appreciate everyone?s understanding of these expected challenges while we build for your future. Report to the Outpatient Waiting Room, entrance under the green pavilion located off [address], at time ___11:30AM____ on date ___04/21/25____. Planned Procedure Time: ___1:30PM .? Time changes happen often and if your time is changed the preop area will call you the afternoon before. - You and your visitor will be asked to self-screen and do not enter if you have any COVID symptoms. Please call surgeon if you need to reschedule. - A mask is optional within the hospital at this time. Patients may have clear liquids (water, carbonated beverages, clear teas, apple juice) until 3 hours prior to surgery (10:30AM) with a maximum of 20 ounces. - No food from midnight until time of surgery and no smoking, or chewing tobacco (or any form of nicotine). No chewing gum, candy or mints. Take only the following medications with a SIP of water on the morning of surgery: ____AUGMENTIN DO NOT STOP ANY OF YOUR OTHER PRESCRIPTION MEDICATIONS PRIOR TO SURGERY EXCEPT THE FOLLOWING Hold all vitamins and supplements for 3 days per anesthesiologist. Medications to discontinue per physician NONE Date to take last dose Please no make-up, nail thai, hairspray, perfume, deodorant, or body powder the day of surgery.? No jewelry (including any body piercings) or valuables the day of surgery, leave them at home.? Please take a shower or bath the night before, or the morning of, surgery with an antibacterial soap.? Wear comfortable, loose fitting clothing.? Children are encouraged to wear pajamas. - Jewelry must be removed prior to entering the operating room.? Rings and piercings that are not removed may be cut off. - The hospital will not accept responsibility for valuables.? - Please leave all valuables, including medications, at home the day of surgery. If you are going home after surgery, a licensed horse and wagon driver must drive you home.? - NO public transportation without another adult if you receive anesthesia. - We recommend that an adult stay with you for 24 hours following discharge. - We also recommend that you do not drive, make important decision, drink alcoholic beverages, or take any drugs that were not prescribed by your health care provider for at least 24 hours after your discharge time. For Pediatric surgeries, we recommend two adults accompany the child home. Follow any additional instructions given to you from your surgeon. Telephone instructions given to ____PATIENT and asked if any additional questions and then verbalized understanding. Patient advised to call surgeon office or pre surgery nurse liaison [phone] if any additional questions.
--- OUTSIDE RECORDS SUMMARY | 2025-04-21 01:43 | XMS_ITS | Continuity of Care Document ---
Author Organization [facility], Main Office Address [address] [place] [address] Assessment Encounter Date Assessment Date Assessment LastModified by Organization Details LastModified Time 03/09/2025 03/09/2025 Labs and Imaging Laboratory tests [...] to a breast specialist will be considered. 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 Procedures None recorded . Surgeries None recorded . Imaging None recorded . Medication Orders None recorded . Patient TargetsNo targets recorded. Patient InstructionsNo instructions recorded. Reason for Referral None Reported. Results Created Date Observation Date Name Description Value Unit Range Abnormal Flag Note LastModifiedBy Organization Detail LastModifiedTime 03/12/2003/13/2025 TSH+F REE T4 TSH 1.360 uIU/m L 0.450- 4.500 normal Not Available [facility] ([facility]) [address] [place], [address], 03/13/2025 10:07:47 03/12/2003/13/2025 TSH+F REE T4 T4,free(dire ct) 1.40 NG/dL 0.82-1 .77 normal Not Available [facility] ([facility]) [address] [place], [address], 03/13/2025 10:07:47 03/12/2003/13/2025 PROLA CTIN prolactin 10.0 NG/mL 4.8-33 .4 normal Not Available [facility] ([facility]) [address] [place], [address], 03/13/2025 10:07:47 03/12/2003/13/2025 HCG QL W/REF RANDY TO HCG QN HCG,beta subunit,qual Negati ve mIU/m L negati ve <6 Not Available [facility] ([facility]) [address] [facility], [place], [address], 03/13/2025 10:07:48 03/22/20 25 03/19/2025 MAMMO , diagn ostic , digit al, bilat eral No observ ation record ed. [email or web address] [facility] [address] [place], [address], 03/23/2025 12:29:47 Result Notes None recorded. Problems Name Problem SNOMED Code Status Onset Date Resolution Date Notes Provider Name and Address Organization Details Recorded Time Increased 19884296 Active 2024 [facility] Chap[facility] CN[facility], [facility] [address], [place], [address], [facility] 14:24:44 Pain of breast 25687908 Active 2024 Den[facility] Chap[facility] CNM, [facility] [address], [place], [address], [facility] 16:00:04 Pain of left breast 0389293375 Active 2024 Cristal Armenta [facility] 5 10:49:49 Inflammator y disorder of breast 689819452 Active 2024 Denise Chapa CNM, HNP-BC [address], [place], [address], [facility] 5 10:31:20 Problem Notes None recorded. Procedures Surgical History Date Name Laterality Status Provider Name and Address Organization Details Recorded Time 4 Date of Last Pap Smear completed Cristal Armenta [facility] 03/09/2025 15:35:38 9 extraction of wisdom tooth completed Cristal Armenta [facility] 03/09/2025 15:32:41 Imaging Results None recorded. Procedure [...] Updated DateTime 03/09/2025 154.94 cm 27.8 kg/m2 60914.08 g 80 /min 143/88 mm[Hg] Cristal Armenta [facility] 15:30:35 Social History Question Answer Notes LastModified by [employer] Details LastModified Time Tobacco Smoking Status [facility] 09:57:04 What Is Your Level Of Caffeine Consumption? Moderate [email or web address] Information not available 04/20/2024 How Many Times Per Week Do You Exercise? 3-4 Times Per Week [email or web address] Information not available 04/20/2024 When Did You Quit Smoking? 11-15yearssin celastcigaret te Information not available 04/20/2024 Are There Any Guns Present In Your Home? No [email or web address] Information not available 04/20/2024 Do You Feel Safe In Your Home? Yes Information not available 04/20/2024 How Many Years Have You Smoked Tobacco? 2 [email or web address] Information not available 04/20/2024 Do You Want To Talk About Contraception Or Prevention During Your Visit Today? Yes [email or web address] Information no t available 04/20/2024 Do You Have Any Future Plans To Get ? No, I Don't Want To Become [email or web address] Information not available 04/20/2024 Sex: Unknown Functional Status Question Answer Note LastModified by [employer] Details LastModified Time Do you use any illicit or recreational drugs? No [email or web address] Information not available 04/20/2024 Do you or have you ever used any other forms of tobacco or nicotine? Yes [email or web address] Information not available 04/20/2024 What is your level of alcohol consumption? None states used to drink daily, but does not drink at all now [email or web address] Information not available 04/20/2024 Do you or have you ever used e-cigarettes or vape? Former user of electronic cigarettes [email or web address] Information not available 04/20/2024 What is your exercise level? Moderate [email or web address] Information not available 04/20/2024 Mental Status Question Answer Note LastModified by Organization D etails LastModified Time Do you feel stressed (tense, restless, nervous, or anxious, or unable to sleep at night)? PG35299-4 [email or web address] Information not available 04/20/2024 Family History Relationship Description Onset Age of this Age Resolved Age Notes LastModified by Organization Details LastModified Time Maternal Grandmother Malignant neoplasm of breast [email or web address] Not available 2023 09:54:06 Medical History Condition Response Other Y History of STI Y History of abnormal pap Y High [...] ICD10 Code Diagnosis IMO Codes Diagnosis Note [id number] Denise Chapa CNM, PMHNP- Main Office [address] [place] [address] 03/09/2025 15:20:24 03/10/2025 07:06:29 Pain of left breast 6893549261 N64.4 [id number] I discussed with Bhavya that her breast symptoms may be related to fibrocysti c changes that can be exacerbate d by caffeine intake. I explained that breast tissue tends to be more lumpy bumpy and fibrocysti c mid-cycle through the menstrual period, and that caffeine can contribute to these symptoms. Upon examinatio n, I confirmed that her left breast appears [...] 250 capsules, or over-the-c ounter options from [employer]) Advised against stimulatin g the breasts to avoid causing more discharge Will review test results when available If results are concerning , will refer to a breast specialist Follow-up at scheduled wellness exam on April 26, 2025 Health Concerns Section Related Observation LastModified by Organization Detai ls LastModified Time None Recorded Concern Status LastModified by Organization Details LastModified Time None Recorded Payers Encounter Date Sequence Insurance Name Policy Number Policy Snell Covered Member ID Snell Member ID Guarantor Name 03/09/2025 1 [facility] [id number] Bhavya Sanders [id number] Bhavya Sanders Notes Date Note Type Note Provider Name and Address Organization Details Recorded Time 03/09/2025 text/html History of present illness Bhavya Sanders [...] been too scared to perform regular breast self-examinations , explaining, I get into my head thinking [...] Health Hospitalization: Not provided Medication History Denise Chapa, JOS, PMHNP-BC [address], [place], [address], [facility] 03/09/2025 23:51:34 OBGyn Episode No OBEpisode recorded.
--- OUTSIDE RECORDS SUMMARY | 2025-04-21 01:43 | XMS_ITS | Continuity of Care Document ---
Author Organization [facility], Main Office Address [address] [place] [address] Assessment Encounter Date Assessment Date Assessment LastModified by Organization Details LastModified Time 03/17/2025 03/17/2025 Labs and Imaging Blood work (March 12, 2025) Patient mentions having blood work done, results were normal. 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 Referral None recorded. Procedures None recorded. Surgeries None recorded. Imaging US, breast, unilatera l 2024 025 [email or web address] [facility], [address], [place], [address], 03/23/2025 12:31:50 Medication Orders None recorded. Patient TargetsNo targets recorded. Patient InstructionsNo instructions recorded. Reason for Referral None Reported. Results Created Date Observation Date Name Description Value Unit Range Abnormal Flag Note LastModifiedBy Organization Detail LastModifiedTime 03/12/2003/13/2025 TSH+F REE T4 TSH 1.360 uIU/m L 0.450- 4.500 normal Not Available [facility] ([facility]) [address] [facility], [place], [address], 03/13/2025 10:07:47 03/12/2003/13/2025 TSH+F REE T4 T4,free(dire ct) 1.40 NG/dL 0.82-1 .77 normal Not Available [facility] ([facility]) [address] [facility], [place], [address], 03/13/2025 10:07:47 03/12/2003/13/2025 PROLA CTIN prolactin 10.0 NG/mL 4.8-33 .4 normal Not Available [facility] ([facility]) [address] [facility], [place], [address], 03/13/2025 10:07:47 03/12/2003/13/2025 HCG QL W/REF RANDY TO HCG QN HCG,beta subunit,qual Negati ve mIU/m L negati ve <6 Not Available [facility] ([facility]) [address] [facility], [place], [address], 03/13/2025 10:07:48 03/22/2003/19/2025 MAMMO , diagn ostic , digit al, bilat eral No observ ation record ed. [facility] [address] [place], [address], 03/23/2025 12:29:47 Result Notes None recorded. Problems Name Problem SNOMED Code Status Onset Date Resolution Date Notes Provider Name and Address Organization Details Recorded Time Increased 87216688 Active 2024 Denise Chapa CNM, [facility]- [address], [place], [address], [facility] 14:24:44 Pain of breast 62214456 Active 2024 Denise Chapa CNM, [facility]- [address], [place], [address], [facility] 16:00:04 Pain of left breast 4922661133 Active 2024 Cristal sullivan, [facility] 10:49:49 Inflammator y disorder of breast 005965646 Active 2024 Denise Chapa, JOS, PMP- [address], [place], [address], [facility] 5 10:31:20 Problem Notes None recorded. Procedures Surgical History Date Name Laterality Status Provider Name and Address Organization Details Recorded Time 4 Date of Last Pap Smear completed Cristal Armenta [facility] 03/09/2025 15:35:38 9 extraction of wisdom tooth completed [facility] 03/09/2025 15:32:41 Imaging Results None recorded. [...] Updated DateTime 03/17/2025 154.94 cm 27.8 kg/m2 03930.08 g 78 /min 123/81 mm[Hg] Cristal Armenta [facility] 5 09:04:55 Social History Question Answer Notes LastModified by Organizat ion Details LastModified Time Tobacco Smoking Status Former Smoker Myrna Zapien laurie [facility] 04/20/2024 09:57:04 What Is Your Level Of Caffeine Consumption? Moderate [email or web address] Information not available 04/20/2024 How Many Times Per Week Do You Exercise? 3-4 Times Per Week [email or web address] Information not available 04/20/2024 When Did You Quit Smoking? 11-15yearssin celastcigaret te [email or web address] Information not available 04/20/2024 Are There Any Guns Present In Your Home? No [email or web address] Information not available 04/20/2024 Do You Feel Safe In Your Home? Yes [email or web address] Information not available 04/20/2024 How Many Years Have You Smoked Tobacco? 2 [email or web address] Information not available 04/20/2024 Do You Want To Talk About Contraception Or Prevention During Your Visit Today? Yes [email or web address] Information no t available 04/20/2024 Do You Have Any Future Plans To Get ? No, I Don't Want To Become Information not available 04/20/2024 Sex: Unknown Functional Status Question Answer Note LastModified by Organizat ion Details LastModified Time Do you use any illicit or recreational drugs? No [email or web address] Information not available 04/20/2024 Do you or have you ever used any other forms of tobacco or nicotine? Yes [email or web address] Information not available 04/20/2024 What is your level of alcohol consumption? None states used to drink daily, but does not drink at all now [email or web address] Information not available 04/20/2024 Do you or have you ever used e-cigarettes or vape? Former user of electronic cigarettes [email or web address] Information not available 04/20/2024 What is your exercise level? Moderate Information not available 04/20/2024 Mental Status Question Answer Note LastModified by Organization D etails LastModified Time Do you feel stressed (tense, restless, nervous, or anxious, or unable to sleep at night)? [id number] [email or web address] Information not available 04/20/2024 Family History Relationship Description Onset Age of this Age Resolved Age Notes LastModified by Organization Details LastModified Time Maternal Grandmother Malignant neoplasm of breast [email or web address] Not available 2023 09:54:06 Medical History Condition [...] Codes Diagnosis Note 8700 Denise Chapa CNM, [facility] Main Office [address] [place] [address] 03/09/2025 15:20:24 03/10/2025 07:06:29 Pain of left breast 9459328973 N64.4 [id number] I discussed with Bhavya that her breast [...] 250 capsules, or over-the-c ounter options from [employer]) Advised against stimulatin g the breasts to avoid causing more discharge Will review test results when available If results are concerning , will refer to a breast specialist Follow-up at scheduled wellness exam on April 26, 2025 [id number] Denise Chapa CNM, [facility] Main Office [address] [place] [address] 03/17/2025 09:00:15 03/18/2025 08:02:03 Inflammatory disorder of breast 715966065 N61.0 75069 Assessment and Plan 1. Recurrent Breast Infection/ [...] affected area Referral to breast specialist at [facility] ([facility] Health Concerns Section Related Observation LastModified by Organization Detai ls LastModified Time None Recorded Concern Status LastModified by Organization Details LastModified Time None Recorded Payers Encounter Date Sequence Insurance Name Policy Number Policy Snell Covered Member ID Snell Member ID Guarantor Name 03/17/2025 1 [id number] Bhavya Sanders [id number] Bhavya Sanders Notes Date Note Type Note Provider Name and Address Organization Details Recorded Time 03/17/2025 text/html Bhavya Sanders is a 35-year-old female [...] the area remains tender to touch. Denise Chapa, JOS, PMHNP-BC [address], [place], [address], [facility] 03/17/2025 23:29:17 OBGyn Episode No OBEpisode recorded.
--- OUTSIDE RECORDS SUMMARY | 2025-04-21 01:43 | XMS_ITS | Data Portability ---
Author Organization [facility], [place], Telehealth (patients home) Address [address] [place] [address] Assessment Encounter Date Assessment Date Assessment LastModified by Organization Details LastModified Time 04/20/2024 04/20/2024 Annual gynecological exam performed. Patient will come back in a year unless there are new symptoms. [email or web address] Not available 04/20/2024 09:49:34 07/20/2024 07/20/2024 Bhavya [...] to a breast specialist will be considered. [email or web address] Not available 03/09/2025 23:46:51 03/17/2025 03/17/2025 Labs and Imaging Blood work (March 12, 2025) Patient mentions having blood work done, results were normal. [email or web address] Not available 03/17/2025 23:27:16 Plan of Treatment Reminders Order Date Submit Date Provider Last Modified By Organization Details Last Modified Time Details Appointments ANNUAL CAFETERIA ASSISTANT 2024 09:00A Jayleen Chapa Not available Not available Not available Lab TSH + free T4, serum 2024 025 NEO [facility], [address], [place], [address], 03/13/2025 10:07:47 prolactin , serum 2024 025 JEFFERSON [facility], [address], [place], [address], 03/13/2025 10:07:47 beta-HCG, qualitati ve, serum or plasma 2024 025 JEFFERSON [facility], [address], [place], [address], 03/13/2025 10:07:48 pap, IG + HPV mRNA E6/E7 + reflex HPV (16+18+45 ) 2023 024 [email or web address] [facility], [address], [place], [address], 05/06/2024 21:14:16 Referral None recorded. Procedures None recorded. Surgeries None recorded. Imaging US, breast, unilatera l 2024 025 [email or web address] [facility], [address], [place], [address], 03/23/2025 12:31:50 Medication Orders NuvaRing 0.12 mg-0.015 mg/24 hr vaginal 2024 025 [facility], [address] [place] [address], [id number], 04/19/2025 18:04:39 NuvaRing 0.12 mg-0.015 mg/24 hr vaginal 2023 024 [facility], [address] [place] [address], [id number], 04/20/2024 11:26:13 Patient TargetsNo targets recorded. Patient Instructions Encounter Date Encounter Id Patient Instructions Last Modified By Organization Details Last Modified Time 04/20/2024 [id number] Learning About Control: The Vaginal Ring [email or web address] Not available 04/20/2024 11:17:06 The Vaginal Ring for Control: Care Instructions [email or web address] Not available 04/20/2024 11:17:06 discussed PHQ9 score and offered psychiatric evaluation for depression care [email or web address] Not available 04/20/2024 11:24:18 Reason for Referral [...] diffe renti ation . 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 LOW GRADE SQUAM OUS INTRA EPITH ELIAL LESIO N (LSIL ). Not Available [facility] ([facility]) [address] [facility], [place], [address], 04/30/2024 17:07:35 04/20/20 24 04/30/2024 IGP, APTIM A HPV, RFX 16/18 ,45 specimen adequacy: Jose ruiz Satis facto ry for evalu ation . Endoc ervic al and/o r squam ous metap lasti c cells (endo cervi lashawn compo nent) are prese nt. Not Available [facility] ([facility]) [address] [place], [address], 04/30/2024 17:07:35 04/20/20 24 04/30/2024 IGP, APTIM A HPV, RFX 16/18 ,45 clinician provided ICD10: Jose ruiz Z01.4 19 Not Available [facility] ([facility]) [address] [place], [address], 04/30/2024 17:07:35 04/20/20 24 04/30/2024 IGP, APTIM A HPV, RFX 16/18 ,45 performed by: Jose Ramos , Cytot echno logis t (ASCP ) Not Available [facility] ([facility]) [address] [place], [address], 04/30/2024 17:07:35 04/20/20 24 04/30/2024 IGP, APTIM A HPV, RFX 16/18 ,45 electronical ly signed by: Jose Fontenot MD, Patho logis t Not Available [facility] ([facility]) [address] [place], [address], 04/30/2024 17:07:35 04/20/20 24 04/30/2024 IGP, APTIM A HPV, RFX 16/18 ,45 . . Not Available [facility] ([facility]) [address] [facility], [address], 04/30/2024 17:07:35 04/20/20 24 04/30/2024 IGP, APTIM A HPV, RFX 16/18 ,45 pathologist provided ICD10: Jose ruiz R87.6 12 Not Available [facility] ([facility]) [address] [facility], [place], [address], 04/30/2024 17:07:35 04/20/20 24 04/30/2024 IGP, APTIM [...] ts do occur . Not Available [facility] ([facility]) [address] [facility], [place], [address], 04/30/2024 17:07:35 04/20/20 24 04/30/2024 IGP, APTIM A HPV, RFX 16/18 ,45 test methodology: Jose ruiz This liqui d based ThinP rep(R ) pap test was scree ele with the use of an image guide d systsemaj m. Not Available [facility] ([facility]) [address] [facility], [place], [address], 04/30/2024 17:07:35 04/20/20 24 04/30/2024 IGP, APTIM A HPV, RFX 16/18 ,45 HPV genotype reflex Jose ruiz Crite delores not met, HPV Genot ype not perfo rmed. Not Available [facility] ([facility]) [address] [facility], [place], [address], 04/30/2024 17:07:35 04/20/20 24 05/04/2024 HPV GENOT YPES 16/18 ,45 HPV genotype 16 Negati ve negati ve Not Available [facility] ([facility]) [address] [place], [address], 05/05/2024 00:05:56 04/20/20 24 05/04/2024 HPV GENOT YPES 16/18 ,45 HPV genotype 18,45 Negati ve negati ve Not Available [facility] ([facility]) [address] [place], [address], 05/05/2024 00:05:56 04/20/20 24 05/04/2024 SONAM EN AUTHO RIZAT ION written authorizatio n Jose Baugh en Autho rizat ion Recei taty. Autho rizat ion recei taty from JOSETTE CHAPA 05-04 Logge d by Cory byers Not Available [facility] ([facility]) [address] [place], [address], 05/05/2024 00:05:57 03/12/2003/13/2025 TSH+F REE T4 TSH 1.360 uIU/m L 0.450- 4.500 normal Not Available [facility] ([facility]) [address] [place], [address], 03/13/2025 10:07:47 03/12/2003/13/2025 TSH+F REE T4 T4,free(dire ct) 1.40 NG/dL 0.82-1 .77 normal Not Available [facility] ([facility]) [address] [place], [address], 03/13/2025 10:07:47 03/12/2003/13/2025 PROLA CTIN prolactin 10.0 NG/mL 4.8-33 .4 normal Not Available [facility] ([facility]) [address] [place], [address], 03/13/2025 10:07:47 03/12/20 25 03/13/2025 HCG QL W/REF RANDY TO HCG QN HCG,beta subunit,qual Negati ve mIU/m L negati ve <6 Not Available [facility] ([facility]) [address] [facility], [place], [address], 03/13/2025 10:07:48 03/22/2003/19/2025 MAMMO , diagn ostic , digit al, bilat eral No observ ation record ed. [email or web address] [facility] [address] [place], [address], 03/23/2025 12:29:47 Result Notes None recorded. Problems Name Problem SNOMED Code Status Onset Date Resolution Date Notes Provider Name and Address Organization Details Recorded Time Increased 37303461 Active 2024 Den[facility], [facility] [address], [place], [address], [facility] 14:24:44 Pain of breast 28303689 Active 2024 Den[facility] Chap[facility] CNM, [facility] [address], [place], [address], [facility] 16:00:04 Pain of left breast 9199519805 Active 2024 Cristal Armenta [facility], [facility] 5 10:49:49 Inflammator y disorder of breast 230071961 Active 2024 Den[facility] Chap[facility] CN[facility], [facility] [address], [place], [address], [facility] 10:31:20 Problem Notes None recorded. Procedures Surgical History Date Name Laterality Status Provider Name and Address Organization Details Recorded Time Date of Last Pap Smear completed Cristal Armenta [facility] 03/09/2025 15:35:38 9 extraction of wisdom tooth completed Cristal [facility] 03/09/2025 15:32:41 Imaging Results None recorded. Procedure [...] Updated DateTime 07/20/2024 154.94 cm 26.5 kg/m2 76460.93 g 79 /min 135/85 mm[Hg] Myrna Zapien [facility] 07/20/2024 09:52:12 Date Recorded Body height Body mass index (BMI) Body weight Heart rate Systolic And Diastolic Provider Name and Address Organization Details Last Updated DateTime 03/09/2025 154.94 cm 27.8 kg/m2 49350.08 g 80 /min 143/88 mm[Hg] Cristal Armenta [facility] 15:30:35 Date Recorded Body height Body mass index (BMI) Body weight Heart rate Systolic And Diastolic Provider Name and Address Organization Details Last Updated DateTime 03/17/2025 154.94 cm 27.8 kg/m2 20685.08 g 78 /min 123/81 mm[Hg] Cristal Armenta [facility] 09:04:55 Date Recorded Body height Body mass index (BMI) Body weight Heart rate Systolic And Diastolic Provider Name and Address Organization Details Last Updated DateTime 04/20/2024 154.94 cm 27.6 kg/m2 29409.49 g 73 /min 129/85 mm[Hg] Myrna Zapien [facility] 04/20/2024 09:51:23 Social History Question Answer Notes LastModified by Organizat ion Details LastModified Time Tobacco Smoking Status Former Smoker Myrna Zapien [facility], [facility] 04/20/2024 09:57:04 What Is Your Level Of Caffeine Consumption? Moderate [email or web address] Information not available 04/20/2024 How Many Times Per Week Do You Exercise? 3-4 Times Per Week [email or web address] Information not available 04/20/2024 When Did You Quit Smoking? 11-15yearssin [email or web address] te Information not available 04/20/2024 Are There Any Guns Present In Your Home? No [email or web address] Information not available 04/20/2024 Do You Feel Safe In Your Home? Yes Information not available 04/20/2024 How Many Years Have You Smoked Tobacco? 2 [email or web address] Information not available 04/20/2024 Do You Want To Talk About Contraception Or Prevention During Your Visit Today? Yes [email or web address] Information no t available 04/20/2024 Do You Have Any Future Plans To Get ? No, I Don't Want To Become [email or web address] Information not available 04/20/2024 Sex: Unknown Functional Status Question Answer Note LastModified by [employer] Details LastModified Time Do you use any illicit or recreational drugs? No Information not available 04/20/2024 Do you or have you ever used any other forms of tobacco or nicotine? Yes [email or web address] Information not available 04/20/2024 What is your level of alcohol consumption? None states used to drink daily, but does not drink at all now [email or web address] Information not available 04/20/2024 Do you or have you ever used e-cigarettes or vape? Former user of electronic cigarettes Information not available 04/20/2024 What is your exercise level? Moderate [email or web address] Information not available 04/20/2024 Mental Status Question Answer Note LastModified by Organization D etails LastModified Time Do you feel stressed (tense, restless, nervous, or anxious, or unable to sleep at night)? [id number] [email or web address] Information not available 04/20/2024 Family History Relationship Description Onset Age of this Age Resolved Age Notes LastModified by Organization Details LastModified Time Maternal Grandmother Malignant neoplasm of breast [email or web address] Not available 2023 09:54:06 Medical History Condition [...] Codes Diagnosis Note [id number] Denise Chapa CNM, [facility] Main Office [address] [place] [address] 04/20/2024 09:40:16 04/21/2024 11:07:31 Gynecologic examination 07402453 Z01.419 encouraged exerciseen couraged monthly BSEEncoura ged yearly annual examsdecli china STD testingenc ouraged getting cholestero l panel and tsh checked through PCP. HAs appt scheduled for new PCP Contracept ion care management [id number] Z30.9 discussed control options with Bhavya. Bhavya [...] her body is adjusting to the hormone.Bi [facility] control consent signed.fol low up in office in 3 months [id number] Denise Chapa CNM, [facility] Main Office [address] [place] [address] 07/20/2024 09:46:21 07/21/2024 10:25:08 Contraception care management [id number] Z30.9 nuvaring sent to [facility] up in office in April for wwe [id number] Denise Chapa CNM, [facility] Main Office [address] [facility] [place] [address] 03/09/2025 15:20:24 03/10/2025 07:06:29 Pain of left breast 1120983078 N64.4 [id number] I discussed with Bhavya that her breast [...] 250 capsules, or over-the-c ounter options from [employer]) Advised against stimulatin g the breasts to avoid causing more discharge Will review test results when available If results are concerning , will refer to a breast specialist Follow-up at scheduled wellness exam on April 26, 2025 [id number] Denise Chapa CNM, [facility]- Main Office [address] [place] [address] 03/17/2025 09:00:15 03/18/2025 08:02:03 Inflammatory disorder of breast 332015707 N61.0 77820 Assessment and Plan 1. Recurrent Breast Infection/ [...] affected area Referral to breast specialist at [facility] ([facility] Health Concerns Section Related Observation LastModified by Organization Detai ls LastModified Time None Recorded Concern Status LastModified by Organization Details LastModified Time None Recorded Advance Directives Directive None Recorded Payers Insurance Date Sequence Insurance Name Policy Number Policy Snell Covered Member ID Snell Member ID Guarantor Name 03/09/2025 1 [facility] [id number] Bhavya Sanders [id number] Bhavya Sanders 03/16/2025 1 [facility] [id number] Bhavya Sanders [id number] Bhavya Sanders Notes Date Note Type Note [...] high risk hpv typing. Denise Chapa CNM, [facility]- [address], [place], [address], [facility] 04/20/2024 11:24:23 5 text/html Bhavya really likes the NuvaRing. Cycles last 4 days and are not as heavy. cramping not as many days. Feeling more balanced mentally. still get really nauseated with her cycle. would like to continue nuvaring Den[facility], [facility] [address], [place], [address], [facility] 07/20/2024 10:20:55 5 text/html History of [...] Denise Chapa CNM, [facility]- [address], [place], [address], [facility] [place] 03/09/2025 23:51:34 5 text/html Bhavya Sanders is [...] Denise Chapa CNM, [facility] [address], [place], [address], [facility] 03/17/2025 23:29:17 OBGyn Episode No OBEpisode recorded.
--- OUTSIDE RECORDS SUMMARY | 2025-04-21 01:43 | XMS_ITS | Clinical Summary ---
Author Organization [facility] Address [address] [place] [address] Care Team Providers Care Nursing Unit Clerk Name Role Phone None, Provider MD Primary [...] Cancer Screening with HPV 01/07/2022 PHQ-2 (Physician [place]) 05/27/2024 COVID-19 Vaccine (1 - 2024-2 6 [...] to complete this topic Insurance Care Teams Nursing Unit Clerk Relationship Specialty Start Date End Date None, Provider, MD PCP - General UNKNOWN PHYSICIAN SPECIALTY 03/25/24
--- OUTSIDE RECORDS SUMMARY | 2025-04-21 01:43 | XMS_ITS | Patient Health Record ---
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
[2025-04-21 11:25] VITALS: BP 129/90; PULSE 80; RESP 16; TEMP 36.3; O2SAT 98
[2025-04-21] MEDS: LACTATED RINGERS 1,000 ML 30 ML IV CONT (11:35)
--- NOTE | 2025-04-21 12:40 | WPDHPUPDATE1 ---
History and Physical Update Update Date/Time: 04/21/25 12:40 - Incision and drainage of left breast abscess. History and Physical has been reviewed, including an updated exam of the patient. There are NO changes in the patient's condition. Risks, benefits, and alternatives have been discussed and questions answered. Patient agrees to proceed with procedure.
--- NOTE | 2025-04-21 13:41 | P.PNAN_ITS ---
Anes - Initial Pre Proc Eval Procedure: Operation Date: 04/21/25 13:30 Proposed Procedures p Incision and Drainage Left Breast Abscess - Claudia Ruiz MD Date/Time: 04/21/25 13:41 Surgeon: Claudia Ruiz MD Pre Op Diagnosis: abscess of left breast and nipple Patient Data Age: 35 Gender: F Height: 1.57 m Weight: 67.3 kg Last Vital Signs Temp 36.3 C L 04/21/25 11:25 Pulse 80 04/21/25 11:25 Resp 16 04/21/25 11:25 BP 129/90 04/21/25 11:25 Pulse Ox 98 04/21/25 11:25 O2 Del Method Room Air 04/21/25 11:25 Allergies Allergy/AdvReac Type Severity Reaction Status Date / Time No Known Allergies Allergy Verified 04/21/25 11:47 Home Medications ?Medication ?Instructions ?Recorded ?Confirmed ?Type etonogestrel 0.12 mg-ethinyl 1 vag ring vaginal ONCE 1 04/21/25 History estradiol 0.015 mg/24 hr vaginal ring (NuvaRing) amoxicillin 875 mg-potassium 1 tablet PO Q12H #10 tabs 04/19/25 04/21/25 Rx clavulanate 125 mg tablet ibuprofen 200 mg tablet 600 mg PO Q6H PRN pain 04/2004/20/25 History Patient hx anesthesia problems: none Family hx anesthesia problems: none Results Review: All pre-operative results and documents have been reviewed as part of the pre- operative evaluation. [facility] Social History Social History Smoking packs per day: 0.2 Smoking cigarettes per day: 4.0 Years smoked: 1.5 Smoking pack-years: 0.30 Smoking status: Former smoker Tobacco type: cigarettes Alcohol intake: never Substance use: never Substance use type: does not use Lack of Transportation: No Lack of Food: Sometimes True Current Housing: I Have Housing Concerned About Future Housing: Decline to Answer Difficulty Paying Gas/Electric Bills: Decline to Answer Difficulty Paying for Meds: Decline to Answer Currently Unemployed: No Education: High School Diploma/GED Difficulty w/ Childcare or Family Care: No Living arrangements: with family Additional living arrangements comments: [place] Spiritual care concerns: No Anes - Eval Final PreProcedure Day of Procedure 04/21/25 13:41 Patient weight: normal Heart: regular rate and rhythm Lungs: clear to auscultation Airway: Mallampati scale class 1 Neurological: alert and oriented Last oral intake: >/= 8 hours ASA classification: II Emergent: no Anesthetic plan: proceed Anesthesia type and monitoring: general LMA and standard monitoring Results Review: All pre-operative results and documents have been reviewed as part of the pre- operative evaluation. Informed Consent: The patient's anesthetic plan and its attendant risks and benefits were discussed with the patient/family/POA. Questions were solicited and answers provided to the satisfaction of the patient/family/POA.
[2025-04-21] MEDS: ceFAZolin 2 GM in SODIUM CHLORIDE 0.9% IV 50 ML 100 ML IVPB (13:51)
--- NOTE | 2025-04-21 14:19 | W.PM.PROC2 ---
Procedure Note - Detailed Date of Procedure 04/21/25 Pre-op Diagnosis Left subareolar abscess Post-op Diagnosis Same Procedure Performed Incision and drainage of left subareolar abscess Surgeon Claudia Ruiz MD Anesthesia MAC Description of Procedure Patient was identified in the preoperative holding area and brought to the operating room suite. She was laid supine in the OR table and sequential compression devices were applied. Anesthesia was induced without difficulty. The left chest was prepped and draped in a sterile fashion. A small superior medial periareolar incision was made and dissection was carried down through the subcutaneous tissue towards the central nipple. The abscess cavity was encountered and cultures were sent. There is a small amount of purulent fluid which was evacuated. The cavity was irrigated with saline and hemostasis was assured. There was chronic granulation tissue through the cavity which was removed with Bovie cautery to expedite healing. The cavity was packed with 1/2 inch iodoform packing tape. The wound was then cover with Mepilex followed by a surgical bra. Patient was awoken from anesthesia and taken to the recovery area in stable condition. All needles, instruments, and sponge counts were correct as reported by the operating room staff. Patient tolerated the procedure well with no immediate complications. Estimated Blood Loss 2 Drains No Packing Yes Complications No immediate complications Condition Stable Disposition PACU [facility] Billing Surgery - Charge Forward: Surgery Billing (CPT 82106)
[2025-04-21 14:29] VITALS: BP 145/95; PULSE 100; RESP 14; TEMP 36.3; O2SAT 100
[2025-04-21] MEDS: BUPIVACAINE/EPINEPHRINE 0.5% 50 ML VIAL 30 ML INFILTRATE (14:36)
[2025-04-21] MEDS: fentaNYL CITRATE INJ (*CRX) 100 MCG/2 ML VIAL 25 MCG IV PUSH ×4 (14:38→14:50)
[2025-04-21 14:45] VITALS: BP 137/93; PULSE 76; RESP 16; O2SAT 99
[2025-04-21 15:00] VITALS: BP 151/95; PULSE 78; RESP 16; O2SAT 100
[2025-04-21 15:08] VITALS: BP 129/90; PULSE 76
[2025-04-21] MEDS: oxyCODONE HCL (*CRX) 5 MG TAB IR PO (15:25)
[2025-04-21 15:38] VITALS: BP 132/84; PULSE 76
== END 2025-04-21 16:08 | disposition home or self-care (01) ==
PROVIDERS: Visit Provider Surgery
PROC: (CPT 19020; principal; 2025-04-21 13:30)
DX: N61.1 Abscess of the breast and nipple (principal); Z87.891 Personal history of nicotine dependence; Z79.1 Long term (current) use of non-steroidal anti-inflammatories (NSAID)
CPT/HCPCS: 19020; 87070; 87075; 87205; J0690; A9270; J2250; J3010; J7120